=== PATIENT | male | born 1965 | race Caucasian/White ===

== ENCOUNTER 2020-05-22 10:50 | Outpatient (RCR) | payer OTHER, SELFPAY ==
--- NOTE | 2020-05-22 13:12 | OTOPEVAL ---
Thank you for referring Jerrod Mijares to [facility].? The patient is scheduled to be seen for therapy? ____x/week for ___ weeks. Please review, sign, date and return this plan of care JEANNIE. I agree with and certify that the following plan of care is medically necessary. Referring Physician Date Admitting Provider: Attending Provider: Donald Em DO Referring Provider: *OT Outpatient Evaluation Start: 05/22/20 11:06 Freq: Status: Active Protocol: Document 05/22/20 11:06 [facility] [place] (Rec: 05/22/20 12:06 [facility] [place] [id number] Therapy Assessment Status Assessment Status Assessment Status Evaluation Evaluation Information Problem Diagnosis L wrist pain Onset 11/27/19 Cause radial styloid tenosynovitis Subjective Information Patient reports that Query Text:As Reported By Patient/ approximately 6 months ago Family patient was pulling to start an engine and as he was pulling it recoiled and twisted/pulled his L wrist/ hand. Since then patient reports pain in the volar wrist area. Patient reports that he is able to perform all his duties that he needs to do however continues to have pain. 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 Quick DASH: 43.2% Diagnostic Tests X-Rays For This Problem No Prior Level of Function Activity Level (Last 3 Months) Hand Dominance Right Activity of Daily Living Ability Independent Indoor/Home Mobility Independent Community Mobility Independent Stairs Ability Independent Functional Cognition (Planning, Shopping Independent , Taking Medications) Cooking Yes Cleaning Yes Laundry Yes Shopping Yes Driving Yes Pain Assessment Timing of Pain Assessment Timing of Pain Assessment Assessment Pain Scale Pain Scale Used Numeric (1 - 10) Self Report Pain Assessment Left Wrist(s) Reported Pain Level 3 Pain Score Pain Score 3: Self Report Interventions Used Interventions Used By Clinicians Exercise,Position Change Upper Extremity Range of Motion General Upper Extremity Range of Motion Reason Not Measured WNL/Left,WNL/Right Upper Extremity Muscle Strength Testing General Upper Extremity S
== END 2020-06-12 14:07 | disposition home or self-care (01) ==
LOC: CHSOT 10:50
PROVIDERS: PCP Family Medicine; Visit Provider Family Medicine
DX: M65.4 Radial styloid tenosynovitis [de Quervain] (principal)
CPT/HCPCS: 97035; 97110; 97140; 97165

== ENCOUNTER 2022-01-13 16:02 | Outpatient (CLI) | payer OTHER, SELFPAY ==
--- NOTE | ~2022-01-13 | CT_ITS ---
EXAMINATION: CT sinus wo con DATE: 01/13/2022 16:22 INDICATION: Excessive sinus drainage for one year. Coughing and choking on phlegm. TECHNIQUE: Computed tomography (CT) of the paranasal sinuses was performed without contrast. Iterativ e reconstruction technique was employed. Exam dose: 321.89 mGy-cm total exam DLP. COMPARISON: None FINDINGS: There is rightward deviation of the anterior upper nasal septum and slight leftward deviati on of the upper posterior septum. The nasal septum otherwise is virtually midline Moderately prominent soft tissue swelling of the nasal turbinates. Intralamellar cell of the left mid dle nasal turbinate Left ostiomeatal unit appears patent. Hypoplastic or absent right infundibulum Chronic nearly complete opacification of the asymmetrically small right maxillary sinus. The paranasal sinuses are otherwise normally developed and aerated. Mastoid air cells are normally developed and aerated. Inner and middle ear apparatus appear unremarkable bilaterally. 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 Reviewed, dictated and finalized at location [facility]. IMPRESSION: Likely chronic small opacified right maxillary sinus with hypoplas tic or absent right infundibulum
== END 2022-01-13 16:03 | disposition home or self-care (01) ==
PROVIDERS: PCP Family Medicine; Visit Provider Otolaryngology
DX: J01.90 Acute sinusitis, unspecified (principal); K21.9 Gastro-esophageal reflux disease without esophagitis; R09.82 Postnasal drip; R44.8 Other symptoms and signs involving general sensations and perceptions; R51.9 Headache, unspecified; R05.9 Cough, unspecified
CPT/HCPCS: 70486

== ENCOUNTER 2022-03-13 01:01 | Day surgery (SDC) | payer OTHER, SELFPAY ==
--- NOTE | 2022-03-10 09:52 | SUR.PREOP ---
Report to the Outpatient Waiting Room, entrance under the green pavilion located off [facility], at time 0600 on date 03/13/22. OR Time: 0800. Time changes happen often and if your time is changed the preop area will call you the afternoon before. - You and your visitor will be asked to self-screen and do not enter if you have any COVID symptoms. - Only one visitor and NO children visitors are allowed at this time. - The patient visitor is requested to leave or wait in car when not with patient due to restrictions. - A mask is required within the hospital. Patients may have clear liquids (water, carbonated beverages, clear teas, apple juice) until 3 hours prior to surgery with a maximum of 20 ounces. - NO CLEAR LIQUIDS AFTER 0500 - No food from midnight until time of surgery - Infants may have breast milk until 4 hours before surgery, formula 6 hours prior to surgery. - Children will be allowed to drink immediately following surgery. If applicable, please bring a bottle or sippy cup to assist with drinking. Juice, water, soda, and popsicles are readily available. For infants on formula, please bring formula the day of surgery. Pacifiers are allowed. Please no make-up, nail sinhala, hairspray, perfume, deodorant, or body powder the day of surgery. No jewelry (including any body piercings) or valuables the day of surgery, leave them at home. Please take a shower or bath the night before, or the morning of, surgery with an antibacterial soap. Wear comfortable, loose fitting clothing. Children are encouraged to wear pajamas. - Jewelry must be removed prior to entering the operating room. Rings and piercings that are not removed may be cut off. - The hospital will not accept responsibility for valuables. - Please leave all valuables, including medications, at home the day of surgery. If you are going home after surgery, a licensed regional refrigerated cdl truck driver must drive you home. - NO public transportation without another adult. - We recommend that an adult stay with you for 24 hours following discharge. - We also recommend that you do not drive, make important decision, drink alcoholic beverages, or take any drugs that were not prescribed by your health care provider for at least 24 hours after your discharge time. For Pediatric surgeries, we recommend two adults accompany the child home (only one inside the building at this time). Follow any additional instructions given to you from your surgeon. If you or anyone in your household have experienced Covid symptoms in the past week, please notify your surgeon or the nurse liaison at the phone number below for possible testing. Telephone instructions given to JOSE MANUEL ELLIS and asked if any additional questions and then verbalized understanding. Patient advised to call surgeon office or pre surgery nurse liaison [phone] if any additional questions.
[2022-03-10 10:05] VITALS: BMI 28.3
--- NOTE | 2022-03-12 17:10 | PM.IMHP ---
H&P: HPI History of Present Illness Date/Time: 03/12/22 17:10 Chief Complaint: Right maxillary sinusitis, silent sinus syndrome right Narrative: planned surgical procedure Review of Systems Review of Systems: All systems reviewed & are unremarkable except as noted in HPI and below [facility] Past Medical History Medical History (Updated 03/12/22 @ 17:12 by Julio C Trinh MD) Chronic cough Surgical History Surgical History Hx of tonsillectomy Family History Family History Father Acute myocardial infarction Mother Breast cancer Social History Social History Smoking status: Never smoker Alcohol intake: never Substance use: never Substance use type: does not use Additional living arrangements comments: Single. 1 Child. Additional occupation/education comments: [employer] Spiritual care concerns: No Meds Home Medications and Allergies Home Medications Medication Instructions Recorded Confirmed Type No Home Medications 03/10/22 03/10/22 History Allergies Allergy/AdvReac Type Severity Reaction Status Date / Time No Known Allergies Allergy Verified 03/10/22 10:04 Exam Narrative: normal ENT exam Assessment and Plan Assessment and plan (1) Chronic sinusitis: Code(s): J32.9 - Chronic sinusitis, unspecified Status: Acute Assessment and Plan: Operating for image guided right-sided maxillary antrostomy tissue removal endoscopic. Risks discussed including change in vision double vision possible need for ophthalmology referral given that it is silent sinus syndrome. CSF leak brain damage need for further procedures failure to resolve symptoms. (2) Facial pain: Code(s): R51.9 - Headache, unspecified Status: Acute (3) PND (post-nasal drip): Code(s): R09.82 - Postnasal drip Status: Acute (4) Facial pressure: Code(s): R44.8 - Other symptoms and signs involving general sensations and perceptions Status: Acute (5) Silent sinus syndrome: Code(s): J34.89 - Other specified disorders of nose and nasal sinuses Status: Acute (6) Maxillary sinusitis: Code(s): J32.0 - Chronic maxillary sinusitis Status: Acute Plan operating room for right-sided endoscopic image guided maxillary antrostomy with tissue removal. Risks discussed including bleeding infection septal perforation CSF leak brain damage change in vision blindness failure to resolve symptoms. Patient voiced understanding and agreed.
[2022-03-13] VITALS (9 sets, daily range): BP systolic 87–148; BP diastolic 56–92; PULSE 52–69; RESP 14–20; TEMP 36.3–36.4; O2SAT 97–100
[2022-03-13] MEDS: ACETAMINOPHEN 500 MG TABLET 1000 MG PO (06:29)
[2022-03-13] MEDS: LACTATED RINGERS 1,000 ML 30 ML IV CONT (07:00)
--- NOTE | 2022-03-13 07:13 | WPDHPUPDATE1 ---
History and Physical Update Update Date/Time: 03/13/22 07:13 History and Physical has been reviewed, including an updated exam of the patient. There are NO changes in the patient's condition. Risks, benefits, and alternatives have been discussed and questions answered. Patient agrees to proceed with procedure.
--- NOTE | 2022-03-13 07:43 | P.PNAN_ITS ---
Anes - Initial Pre Proc Eval Procedure: Operation Date: 03/13/22 08:00 Proposed Procedures p Right Maxillary Antrostomy with Tissue Removal - Julio C Trinh MD Date/Time: 03/13/22 07:43 Surgeon: Julio C Trinh MD Pre Op Diagnosis: right maxillary sinusitis Patient Data Age: 57 Gender: M Height: 1.7 m Weight: 83.3 kg Last Vital Signs Temp 36.4 C L 03/13/22 06:32 Pulse 69 03/13/22 06:32 Resp 20 03/13/22 06:32 BP 127/77 03/13/22 06:32 Pulse Ox 100 03/13/22 06:32 O2 Del Method Room Air 03/13/22 06:32 Allergies Allergy/AdvReac Type Severity Reaction Status Date / Time No Known Allergies Allergy Verified 03/13/22 06:28 Home Medications Medication Instructions Recorded Confirmed Type No Home Medications 03/10/22 03/13/22 History Patient hx anesthesia problems: none Family hx anesthesia problems: none Results Review: All pre-operative results and documents have been reviewed as part of the pre-operative evaluation. [facility] Past Medical History Medical History Chronic cough Surgical History Surgical History Hx of tonsillectomy Family History Family History Father Acute myocardial infarction Mother Breast cancer Social History Social History Smoking status: Never smoker Alcohol intake: never Substance use: never Substance use type: does not use Additional living arrangements comments: Single. 1 Child. Additional occupation/education comments: [id number] Spiritual care concerns: No Anes - Eval Final PreProcedure Day of Procedure 03/13/22 07:43 Patient weight: overweight Heart: regular rate and rhythm Lungs: clear to auscultation Airway: Mallampati scale class II Neurological: alert and oriented Last oral intake: >/= 8 hours ASA classification: II Emergent: no Anesthetic plan: proceed Results Review: All pre-operative results and documents have been reviewed as part of the pre- operative evaluation. Informed Consent: The patient's anesthetic plan and its attendant risks and benefits were discussed with the patient/family/POA. Questions were solicited and answers provided to the satisfaction of the patient/family/POA.
[2022-03-13] MEDS: ceFAZolin 2 GM/D5W 50 ML 2 GM/50 ML BAG IVPB (08:05)
--- NOTE | 2022-03-13 08:44 | W.PM.PROC2 ---
Procedure Note - Detailed Date of Procedure 03/13/22 Pre-op Diagnosis right maxillary sinusitis, silent sinus syndrome Post-op Diagnosis Same Procedure Performed right-sided endoscopic maxillary antrostomy with tissue room Surgeon Julio C Trinh MD Anesthesia General Indications see above Findings mucus and purulence within the sinus edematous tissue all removed normal otherwise no complications Description of Procedure patient identified consent verified. Patient brought operating room. Time-out performed. General anesthesia induced marking confirmed on the right side patient prepped draped bed rotated 2nd time-out performed. Afrin-soaked pledgets placed allowed to sit for 5 minutes then removed 0 degree endoscope utilized right middle turbinate medialized with [place]. Double ball tip probe placed into the right maxillary sinus double ball tip sorry backbiter utilized to open the sinus and perform the antrostomy double ball tip probe utilized to confirm connection to the natural loss straight through cut utilized to finish the maxillary antrostomy tissue was removed with suctioning for several minutes. Sinus appeared normal afterwards albeit small given that the silent sinus. Blood suctioned to the posterior choana Afrin-soaked pledget placed total blood loss about 2 cc. Patient tolerated the procedure well no complications care the patient given Anesthesiology Afrin-soaked pledgets removed. Patient taken to PACU. Estimated Blood Loss 2 Drains No Packing No Pathology None sent Complications No immediate complications Condition Stable Disposition PACU
[2022-03-13] MEDS: oxyCODONE HCL (*CRX) 5 MG TAB IR PO (09:47)
== END 2022-03-13 10:40 | disposition home or self-care (01) ==
PROVIDERS: Visit Provider Otolaryngology
PROC: (CPT 31267; principal; 2022-03-13 08:00)
DX: J32.0 Chronic maxillary sinusitis (principal); J34.89 Other specified disorders of nose and nasal sinuses; R51.9 Headache, unspecified; R09.82 Postnasal drip; R44.8 Other symptoms and signs involving general sensations and perceptions
CPT/HCPCS: 31267; A9270; J0330; J0690; J1100; J1170; J2250; J2405; J2704; J3010; J7120

== ENCOUNTER 2022-10-22 09:10 | Outpatient (CLI) | payer OTHER, SELFPAY | END 2022-10-22 09:11 | disposition home or self-care (01) | LOC: CHSLAB 09:12 | PROVIDERS: PCP Family Medicine; Visit Provider Family Medicine | DX: Z20.2 Contact with and (suspected) exposure to infections with a predominantly sexual mode of transmission (principal) | CPT/HCPCS: 36415; 86695; 86696 ==

== ENCOUNTER 2023-02-12 15:08 | Outpatient (CLI) | payer OTHER, SELFPAY ==
[2023-02-12 15:20] LABS: Basophils Absolute Auto 0.04 K/mm3 (0.00-0.10); Basophils Percent Auto 0.8 % (0.0-1.0); Eosinophils Absolute Auto 0.13 K/mm3 (0.02-0.50); Eosinophils Percent Auto 2.6 % (1.0-6.0); Hematocrit 44.5 % (40.0-54.0); Hemoglobin 15.3 g/dL (14.0-18.0); Immature Granulocyte Absolute 0.01 K/mm3 (0.00-0.00); Immature Granulocyte Percent A 0.2 % (0.0-0.0); Lymphocytes Absolute Auto 1.81 K/mm3 (1.10-4.50); Lymphocytes Percent Auto 35.6 % (18.0-42.0); Mean Corpuscular HGB Conc 34.4 g/dL (32.0-36.0); Mean Corpuscular Hemoglobin 30.1 pg (27.0-31.0); Mean Corpuscular Volume 87.4 fL (78.0-102.0); Mean Platelet Volume 10.1 fl (8.7-11.0); Monocytes Absolute Auto 0.37 K/mm3 (0.10-0.90); Monocytes Percent Auto 7.3 % (2.0-11.0); Neutrophils Absolute Auto 2.7 K/mm3 (1.7-7.2); Neutrophils Percent Auto 53.5 % (50.0-70.0); Platelet Count Result 261 K/mm3 (150-420); Red Blood Count 5.09 M/mm3 (4.70-6.10); Red Cell Distribution Width 12.2 % (11.6-14.4); White Blood Count 5.1 K/mm3 (4.8-10.8)
[2023-02-12 15:56] LABS: Alanine Aminotransferase 24 U/L (16-63); Alkaline Phosphatase 96 U/L (46-116); Anion Gap 9 mmol/L (8-16); Aspartate Amino Transferase 15 U/L (15-37); Bilirubin,Total 0.8 mg/dL (0.00-1.00); Blood Urea Nitrogen 16 mg/dL (7-18); Calcium 9.1 mg/dL (8.5-10.1); Carbon Dioxide 27 mmol/L (21-32); Chloride 105 mmol/L (98-108); Cholesterol 151 mg/dL (0-200); Estimated Glomerular Filt Rate > 60; Glucose 97 mg/dL (70-99); HDL Direct 49 mg/dL (40-60); LDL Cholesterol Calculated 87 mg/dL (<130); Osmolality Calculated 293 mOsm/kg (285-295); Potassium 3.8 mmol/L (3.5-5.1); Sodium 141 mmol/L (136-145); Total Protein 6.5 g/dL (6.4-8.2); Triglycerides 75 mg/dL (0-150)
[2023-02-12 16:06] LABS: Thyroid Stimulating Hormone Reflex 1.54 u/IU/mL (0.36-3.74)
== END 2023-02-12 15:09 | disposition home or self-care (01) ==
LOC: CHSLAB 15:10
PROVIDERS: PCP Family Medicine; Visit Provider Family Medicine
DX: Z00.00 Encounter for general adult medical examination without abnormal findings (principal); E11.9 Type 2 diabetes mellitus without complications
CPT/HCPCS: 36415; 80053; 80061; 84443; 85025

== ENCOUNTER 2024-04-24 11:01 | Outpatient (CLI) | payer OTHER, SELFPAY ==
--- NOTE | 2024-04-24 11:25 | ECG_ITS ---
Test Date: 2024-04-24 11:34:48 Measurements Intervals [place] Rate: 64 P: 60 PA: 156 QRS: -2 QRSD: 111 T: 26 QT: 426 QTc: 441 Interpretive Statements SINUS RHYTHM INCOMPLETE RIGHT BUNDLE BRANCH BLOCK [90+ ms QRS DURATION, TERMINAL R IN V1/V2, 40+ ms S IN I/aVL/V4/V5/V6] MINIMAL VOLTAGE CRITERIA FOR LVH, CONSIDER NORMAL VARIANT [MEETS CRITERIA IN ONE OF: R(aVL), S(V1), R(V5), R(V5/V6)+S(V1)] MODERATE ST DEPRESSION [0.05+ mV ST DEPRESSION] No previous ECG available for comparison Electronically Signed On 04-25-2024 09:37:16 CDT by Nigel Valdez M.D.
[2024-04-24 11:31] LABS: Basophils Absolute Auto 0.05 K/mm3 (0.00-0.10); Basophils Percent Auto 0.9 % (0.0-1.0); Eosinophils Absolute Auto 0.16 K/mm3 (0.02-0.50); Eosinophils Percent Auto 2.8 % (1.0-6.0); Hematocrit 46.1 % (40.0-54.0); Hemoglobin 16.1 g/dL (14.0-18.0); Immature Granulocyte Absolute 0.04 K/mm3 (0.00-0.00); Immature Granulocyte Percent A 0.7 % (0.0-0.0); Lymphocytes Percent Auto 21.1 % (18.0-42.0); Mean Corpuscular HGB Conc 34.9 g/dL (32-36); Mean Corpuscular Hemoglobin 29.2 pg (27.0-31.0); Mean Corpuscular Volume 83.7 fL (78.0-102.0); Mean Platelet Volume 9.6 fl (8.7-11.0); Monocytes Absolute Auto 0.43 K/mm3 (0.10-0.90); Monocytes Percent Auto 7.5 % (2.0-11.0); Neutrophils Absolute Auto 3.82 K/mm3 (1.70-7.20); Platelet Count Result 310 K/mm3 (150-420); Red Blood Count 5.51 M/mm3 (4.70-6.10); Red Cell Distribution Width 12.5 % (11.6-14.4); White Blood Count 5.7 K/mm3 (4.8-10.8)
[2024-04-24 11:45] LABS: Hemoglobin A1C 5.5 % (<5.7)
[2024-04-24 12:15] LABS: Alanine Aminotransferase 37 U/L (16-63); Albumin Level 3.8 g/dL (3.4-5.0); Alkaline Phosphatase 104 U/L (46-116); Anion Gap 7 mmol/L (4-12); Aspartate Amino Transferase 16 U/L (15-37); Blood Urea Nitrogen 15 mg/dL (7-18); Calcium 9.3 mg/dL (8.5-10.1); Carbon Dioxide 31 mmol/L (21-32); Chloride 104 mmol/L (98-108); Cholesterol 198 mg/dL (0-200); Estimated Glomerular Filt Rate > 60; Free T4 Free Thyroxine 0.84 ng/dL (0.76-1.46); Glucose 100 mg/dL (70-99); HDL Direct 53 mg/dL (40-60); Iron 99 ug/dL (65-175); LDL Cholesterol Calculated 127 mg/dL (<130); Magnesium 2.1 mg/dL (1.8-2.4); Osmolality Calculated 294 mOsm/kg (285-295); Percent Iron Saturation 25 % (12-57); Potassium 4.1 mmol/L (3.5-5.1); Sodium 142 mmol/L (136-145); Thyroid Stimulating Hormone 2.89 uIU/mL (0.36-3.74); Total Protein 6.9 g/dL (6.4-8.2); Triglycerides 90 mg/dL (0-150)
[2024-04-26 06:58] LABS: Total Triiodothyronine (T3) 99 ng/dL (76-181)
== END 2024-04-24 11:02 | disposition home or self-care (01) ==
LOC: CHSLAB 11:03
PROVIDERS: PCP Family Medicine; Visit Provider Nurse Practitioner Family
DX: Z13.6 Encounter for screening for cardiovascular disorders (principal); R42 Dizziness and giddiness; I10 Essential (primary) hypertension; I45.19 Other right bundle-branch block
CPT/HCPCS: 36415; 80053; 80061; 83036; 83540; 83550; 83735; 84439; 84443; 84480; 85025; 93005

== ENCOUNTER 2024-12-13 09:53 | Outpatient (CLI) | payer OTHER, SELFPAY ==
[2024-12-13 10:13] LABS: Basophils Absolute Auto 0.05 K/mm3 (0.00-0.10); Hematocrit 43.9 % (40.0-54.0); Hemoglobin 14.7 g/dL (14.0-18.0); Immature Granulocyte Absolute 0.03 K/mm3 (0.00-0.00); Immature Granulocyte Percent A 0.6 % (0.0-0.0); Lymphocytes Absolute Auto 1.06 K/mm3 (1.10-4.50); Mean Corpuscular HGB Conc 33.5 g/dL (32-36); Mean Corpuscular Hemoglobin 28.2 pg (27.0-31.0); Mean Corpuscular Volume 84.1 fL (78.0-102.0); Mean Platelet Volume 9.7 fl (8.7-11.0); Monocytes Absolute Auto 0.43 K/mm3 (0.10-0.90); Monocytes Percent Auto 8.5 % (2.0-11.0); Neutrophils Absolute Auto 3.28 K/mm3 (1.70-7.20); Neutrophils Percent Auto 64.9 % (50.0-70.0); Platelet Count Result 287 K/mm3 (150-420); Red Blood Count 5.22 M/mm3 (4.70-6.10); Red Cell Distribution Width 12.5 % (11.6-14.4); White Blood Count 5.1 K/mm3 (4.8-10.8)
[2024-12-13 10:29] LABS: Alanine Aminotransferase 26 U/L (6-50); Albumin Level 4.1 g/dL (3.5-5.1); Alkaline Phosphatase 86 U/L (38-126); Anion Gap 5 mmol/L (4-12); Aspartate Amino Transferase 25 U/L (17-59); Blood Urea Nitrogen 17 mg/dL (9-20); Calcium 9.2 mg/dL (8.4-10.2); Carbon Dioxide 27 mmol/L (22-30); Chloride 106 mmol/L (98-107); Estimated Glomerular Filt Rate > 60; Glucose 116 mg/dL (65-110); Iron 108 ug/dL (49-181); Osmolality Calculated 288 mOsm/kg (285-295); Potassium 3.9 mmol/L (3.4-5.0); Sodium 138 mmol/L (137-145); Total Protein 6.7 g/dL (6.3-8.2)
[2024-12-13 10:38] LABS: Percent Iron Saturation 31 % (20-50)
--- OUTSIDE RECORDS SUMMARY | 2024-12-13 11:08 | XMS_ITS | Clinical Summary ---
Author Organization [facility] Address [address] [place] [address] Phone Care Team Providers Care Evaporator Supervisor Name Role Phone Zaynab Salazar APRN, CNP Primary Care Prov ider Allergies No known active allergies Medications No known medications Social History Tobacco Use Types Packs/Day Years Used Date Smoking Tobacco: Never Smokeless Tobacco: Never Sex and Gender Information Value Date Recorded Sex Assigned at Not on file Legal Sex Male 2:31 PM CDT Gender Identity Not on file Sexual Orientation Not on file Last Filed Vital Signs Vital Sign Reading Time Taken Comments Blood Pressure 118/70 11/20/2022 2:42 PM CDT Pulse 70 11/20/2022 2:42 PM CDT Temperature 37 C (98.6 F) 11/20/2022 2:42 PM CDT Respiratory Rate 20 11/20/2022 2:42 PM CDT Oxygen Saturation 98% 11/20/2022 2:42 PM CDT Inhaled Oxygen Concentration - - Weight - - Height - - Body Mass Index - - Plan of Treatment Health Maintenance Due Date Last Done Comments Hepatitis C Virus (HCV) Screening 1965 TdaP Immunization 1967 Hepatitis B Immunization (1 of 3 - 19+ 3-dose series) 1986 Colonoscopy 01/31/2012 Colorectal Cancer Screening 01/31/2012 Cologuard 2017 Immunochemical Fecal Occult Blood 2017 Pneumococcal Immunization (5 0+ years) (1 of 1 - PCV) 2017 Zoster Immunization (1 of 2) 2017 PSA Discussion 2022 Influenza Immunization (#1) 2024 SARS-COV-2 Immunization ( - 2024-25 season) 2024 Respiratory Syncytial Virus (RSV) Immunization (Adult) (1 - 1-dose 75+ series) 2042 Meningococcal Immunization (ACWY) Aged Out No longer eligible based on patient's age to complete this topic Pneumococcal Immunization Combined Aged Out No longer eligible based on patient's age to complete this topic Rotavirus Immunization Aged Out No lo nger eligible based on patient's age to complete this topic Care Teams Evaporator Supervisor Relationship Specialty Start Date End Date Zaynab Salazar APRN, INTERACTIVE MULTIMEDIA DESIGNER [address] [place] [address] PCP - General Advanced Practice Nurse 12/04/22
== END 2024-12-13 09:54 | disposition home or self-care (01) ==
LOC: CHSLAB 09:55
PROVIDERS: PCP Family Medicine; Visit Provider Family Medicine
DX: R42 Dizziness and giddiness (principal); D50.9 Iron deficiency anemia, unspecified; D64.9 Anemia, unspecified; E03.9 Hypothyroidism, unspecified
CPT/HCPCS: 36415; 80053; 82728; 83540; 83550; 84443; 85025

== ENCOUNTER 2024-12-21 08:54 | Outpatient (CLI) | payer OTHER, SELFPAY ==
--- NOTE | ~2024-12-21 | US_ITS ---
EXAMINATION: US carotid duplex BI DATE: 12/21/2024 17:30 CDT INDICATION: Vertigo TECHNIQUE: Grayscale, color Doppler, and pulsed Doppler images of the cervical carotid arteries were obtained. The degree of vessel stenosis is placed in one of the following categories: normal, <50%, 50-69%, >=7 0% but less than near-occlusion, near-occlusion, or total occlusion. Note that percent stenosis relative to normal distal artery lumen diameter is indirectly measured fro m velocity measurements as described originally by Rene, et al. Radiology 2003; 229:340-346 and upda amanda by Norman Sorto et al STROKE 2012;43(3);915-921. COMPARISON: None. FINDINGS: There is mild atherosclerosis of both carotid arteries. Peak systolic velocity (in cm/s) is detailed below RIGHT: Right common carotid artery (CCA): 69 cm/s. Right internal carotid artery (ICA) PSV: 82 cm/s. Right ICA end-diastolic velocity (EDV): 37 cm/s. Right ICA/CCA PSV ratio is 1.2. Right external carotid artery (ECA): 84cm/s. There is antegrade flow in the right vertebral artery LEFT: Left common carotid artery (CCA): 75 cm/s. Left internal carotid artery (ICA) PSV: 72 cm/s. Left ICA end-diastolic velocity (EDV): 35 cm/s. Left ICA/CCA PSV ratio is 1.0. Left external carotid artery (ECA): 88cm/s. There is antegrade flow in the left vertebral artery. IMPRESSION: 1. Less than 50% stenosis in the right internal carotid artery. 2. Less than 50% stenosis in the left internal carotid artery. Reviewed, dictated and finalized at location A.
== END 2024-12-21 08:55 | disposition home or self-care (01) ==
LOC: CHSIMG 08:55
PROVIDERS: PCP Family Medicine; Visit Provider Family Medicine
DX: R42 Dizziness and giddiness (principal); I65.23 Occlusion and stenosis of bilateral carotid arteries
CPT/HCPCS: 93880